=== PATIENT | female | born 1935 | race Caucasian/White ===

== ENCOUNTER 2017-02-10 14:24 | Emergency (ER) | payer OTHER ==
[2017-02-10] MEDS ORDERED: MORPHINE SULFATE INJ 4 MG IM ONE (16:12)
[2017-02-10] MEDS ORDERED: MORPHINE SULFATE INJ 4 MG ONE (16:15)
--- NOTE | 2017-02-10 16:15 | DR.GENAD ---
HPI - Complaint/Symptoms Chief Complaint Doctors Comments: Patient states that two days ago fell forward when getting of the stool,chest hit the bath tub. Thought the pain would be getting betting but is worse across the anterior chest. Pain is 6/8, moderate, aggravated with chest wall motion. PMH - PMH Past Medical History: Arthritis, Diabetes, Renal Disease Past Surgical History: Yes Surgical History: Hysterectomy - Family History Family Medical History: Diabetes Mellitus, Coronary Artery Disease, Hypertension - Social History Do you use any recreational Drugs:: No ROS - Review of Systems Eyes: No Symptoms Reported ENTM: No Symptoms Reported Respiratoy: No Symptoms Reported Cardiovascular: No Symptoms Reported Gastrointestinal/Abdominal: No Symptoms Reported Genitourinary: No Symptoms Reported Neurological: No Symptoms Reported Musculoskeletal: Chest wall Integumentary: No Symptoms Reported Hematologic/Lymphatic: No Symptoms Reported Endocrine: No Symptoms Reported Psychiatric: No Symptoms Reported All Other Systems: Reviewed and Negative PE - Vital Signs Vitals: Blood Pressure 191/68 - General Limitations: No Limitations General Appearance: Alert, In No Apparent Distress - Head Head Exam: Normal Inspection, Atraumatic - Eyes Eye exam: Normal Appearance, PERRL, EOMI - ENT ENT Exam: Normal Exam External Ear Exam: Normal External Inspection TM/Canal Exam: Bilateral Normal Nose Exam: Normal Nose Exam Mouth Exam: Normal Inspection Throat Exam: Normal Inspection - Neck Neck Exam: Normal Inspection - Chest Chest Inspection: Normal Inspection - Respiratory Respiratory Exam: Normal Lung Sounds Bilat Respiratory Exam: Bilateral Clear to Auscultation - Cardiovascular Cardiovascular Exam: Regular Rate, Normal Rhythm - Abdominal Exam Abdominal Exam: Normal Inspection, Normal Bowel Sounds Abdominal Tenderness: negative: RUQ, RLQ, LUQ, LLQ, Epigastrium, Suprapubic, Diffuse, Mild, Moderate, Severe, Other - Extremities Extremities Exam: Normal Inspection - Back Back Exam: Normal Inspection - Neurologic Neurological Exam: Alert, Oriented X3, CN II-XII Intact - Psychiatric Psychiatric Exam: Normal Affect, Normal Mood - Skin Skin Exam: Warm, Dry Course - Reevaluation 1st: Improved ROR - XRAY XRAY Interpreted by: Radiologist (Stable mild cardiomegaly with minimal discoid atelectasis or scarring along the lung bases which is less prominent. Severe compression fracture along the thoracolumbar spine which is unchanged.) - Diagnosis Discharge Problem: Compression fracture of body of thoracic vertebra Compression fracture of lumbar vertebra, non-traumatic Qualifiers: Encounter type: sequela Qualified Code(s): M48.56XS - Collapsed vertebra, not elsewhere classified, lumbar region, sequela of fracture - Discharge Plan Condition: Stable - Follow ups/Referrals Follow ups/Referrals: AARON GORDON [Primary Care Provider] - 3 days - Instructions
--- NOTE | 2017-02-10 16:59 | RAD ---
HISTORY: Chest pain Study: PA and lateral Comparison: 09/26/2013 Findings: The heart is borderline enlarged. The pulmonary vessels are normal. There are mild linear densities along the lung bases which are less prominent. No consolidation or effusion is seen. There is a amy re compression fracture along the thoracolumbar spine with associated kyphotic deformity in the area which is unchanged. IMPRESSION: Stable mild cardiomegaly with minimal discoid atelectasis or scarring along the lung bases which is less prominent. Severe compression fracture along the thoracolumbar spine which is unchanged. Reported By:
[2017-02-10 18:08] VITALS: BP 133/93; BMI 31.6
== END 2017-02-10 17:59 | disposition home or self-care (01) ==
LOC: ER 14:24
DX: S22.010A Wedge compression fracture of first thoracic vertebra, initial encounter for closed fracture (principal); M48.56XS Collapsed vertebra, not elsewhere classified, lumbar region, sequela of fracture; W01.198A Fall on same level from slipping, tripping and stumbling with subsequent striking against other object, initial encounter
CPT/HCPCS: 71020; 96372; 99282; J2270

== ENCOUNTER 2017-03-19 09:47 | Inpatient (IN) | payer OTHER ==
[2017-03-19 09:58] VITALS: BMI 29.2
[2017-03-19 10:15] LABS: BASOPHILS # (AUTO) 0.1 X10^3/uL (0.0-0.1); BASOPHILS % (AUTO) 0.3 % (0.2-1.0); EOSINOPHILS # (AUTO) 0.1 x10^3/uL (0.0-0.2); EOSINOPHILS % (AUTO) 0.4 % (0.9-2.9); HEMATOCRIT 34.7 % (36.0-47.0); HEMOGLOBIN 11.5 g/dL (12.0-16.0); LYMPHOCYTES % (AUTO) 11.9 % (21.0-51.0); MEAN CORPUSCULAR HEMOGLOBIN 30.4 pg (27.0-34.0); MEAN CORPUSCULAR HGB CONC 33.1 g/dL (33.0-35.0); MEAN CORPUSCULAR VOLUME 91.6 fL (80.0-100.0); MEAN PLATELET VOLUME 7.7 fL (7.4-11.0); MONOCYTES # (AUTO) 0.9 x10^3/uL (0.3-0.8); MONOCYTES % (AUTO) 5.4 % (0.0-13.0); NEUTROPHILS # (AUTO) 13.6 x10^3/uL (2.2-4.8); PLATELET COUNT 205 X10^3/uL (150.0-450.0); RED BLOOD COUNT 3.79 X10^6/uL (3.5-5.4); RED CELL DISTRIBUTION WIDTH 15.3 % (11.6-16.5); WHITE BLOOD COUNT 16.6 X10^3/uL (3.6-10.0)
[2017-03-19] MEDS ORDERED: MORPHINE SULFATE INJ 4 MG IVP ONE (10:20)
[2017-03-19] MEDS ORDERED: MORPHINE SULFATE INJ 4 MG ONE (10:21)
[2017-03-19 10:33] LABS: BLOOD UREA NITROGEN 30 mg/dL (7-18); CALCIUM 8.4 mg/dL (8.5-10.1); CARBON DIOXIDE 22.7 mmol/L (21-32); CHLORIDE 96 mmol/L (98-107); COR NA(FOR HYPERGLY) 129 mmol/L (136-145); CREATININE 1.46 mg/dL (0.55-1.02); GLUCOSE 129 mg/dL (65-99); SODIUM 128 mmol/L (136-145); TROPONIN I < 0.02 ng/mL (0-1.5); eGFR BLACK RACES 44 (>60); eGFR NON BLACK RACES 37 (>60)
[2017-03-19 10:37] LABS: ALANINE AMINOTRANSFERASE 31 Units/L (12-78); ALBUMIN 3.2 g/dL (3.4-5.0); ALKALINE PHOSPHATASE 49 Units/L (46-116); ASPARTATE AMINO TRANSFERASE 26 Units/L (15-37); CKMB % 1.9 % (<4); CREATINE KINASE 58 Units/L (26-192); CREATINE KINASE MB 1.1 ng/mL (0-4.0); TOTAL PROTEIN 6.4 g/dL (6.4-8.2)
--- NOTE | 2017-03-19 10:45 | RAD ---
HISTORY: 81-year-old female status post fall. Study: Frontal view of the chest. Comparison: Chest radiographs February 10, 2017 Findings: Chronic elevation the right hemidiaphragm. The trachea is midline. The cardiac silhouette is stably enlarged. The lungs are clear without foc al consolidation, effusion or pneumothorax. Soft tissues are unremarkable. Osseus structures are un remarkable. IMPRESSION: 1. No acute cardiopulmonary disease. Reported By:
--- NOTE | 2017-03-19 11:28 | DR.EXTPAIN ---
HPI - Time seen Time seen: 11:25 - HPI Comment HPI Comment: SHE IS WEAK AND SHE IS NOT ABLE TO GET UP AND GO. PAIN BOTH KNESS. - Complaint/Symptoms Chief Complaint Doctor Comments: FELL 02:00AM TODAY AND HAVE PAIN LOWER BACK AND TAIL BONE. NO LOC. 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 Self Treatment fo Chief Complaint: PT TOLD EMS SHE FELL AT 0200 AND HER WALKER BROKE THIS AM SHE HAD NO STRENGH AND SHE FELL BESIDE THE BED ..BR - Nurses notes reviewed Nurses Notes Review: Yes - Source History Provided: Patient, EMS - Mode of arrival Mode of Arrival: EMS - Timing Onset of Chief Complaint: 03/18/17 - Context History of: Arthritis - Associated signs and symptoms Associated Signs and Symptoms: Pain, Swelling, Bruising PMH - PMH Past Medical History: Yes Past Medical History: Arthritis, Diabetes, Hypothyroidism, Renal Disease Past Surgical History: Yes Surgical History: Hysterectomy - Family History History of Family Medical Conditions: Yes Family Medical History: Diabetes Mellitus, Coronary Artery Disease, Hypertension - Social History Does patient currently use any type of tobacco product: No Have you used tobacco products in the last 12 months: No Type of Tobacco Use: None Does any household member use tobacco: No Alcohol Use: None, Rarely Do you use any recreational Drugs:: No Lives With: Alone Lives Where: Home - infectious screening In the last 2 months have you had wt loss of >10#?: NO Have you had fever, night sweats or hemotysis?: No Have you traveled outside the country in the last 6 months?: No Isolation: Standard ROS - Review of Systems Constitutional: Weakness. negative: Chills, Fever Eyes: negative: Eye Pain, Discharge ENTM: negative: Ear Pain, Nose Discharge, Nose Congestion, Throat Pain Respiratoy: Short of Breath. negative: Productive Cough, Non-Productive Cough, Wheezing, Hemoptysis Cardiovascular: negative: Syncope Gastrointestinal/Abdominal: negative: Abdominal Pain, Diarrhea, Nausea, Vomiting Genitourinary: negative: Dysuria, Hematuria Neurological: Weakness. negative: Headache Musculoskeletal: Muscle Pain Integumentary: Change in Color, Bruises Hematologic/Lymphatic: Easy Bruising Endocrine: No Symptoms Reported All Other Systems: Reviewed and Negative PE - Vital Signs Vitals: Temperature 98.1 F Pulse Rate 62 Respiratory Rate 18 Blood Pressure 104/76 O2 Sat by Pulse Oximetry 100 - General Limitations: No Limitations General Appearance: Alert - Head Head Exam: Normal Inspection - Eyes Eye exam: Normal Appearance - ENT ENT Exam: Normal External Ear Exam - Neck Neck Exam: Normal Inspection - Chest Chest Inspection: Normal Inspection - Respiratory Respiratory Exam: Normal Lung Sounds Bilat Respiratory Exam: Bilateral Clear to Auscultation - Cardiovascular Cardiovascular Exam: Regular Rate, Normal Rhythm, Irregular Rhythm - Abdominal Exam Abdominal Exam: Normal Bowel Sounds, Soft. negative: Tenderness - Extremities Extremities Exam: Tenderness (LT FOOT, KNEES TENDER), Joint Swelling (KNEES) - Lower Extremities Neurovascular/Tendon Exam: Normal Capillary Refill. 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 - Consultation Consultation Comments: DISCUSS PATIENT WITH DR. JERRY. HE WILL ADMIT PATIENT. DISCUU PATIENT WITH ORTHOPEDIC DR. ENGINEERING MANAGER [employer] FOR CONSULT, DR. MEEKS. - Education/Counseling Education/Counseling: Patient, Family, Education Educated On: Treatment, Diagnosis ROR - Labs Reviewed Laboratory Results Reviewed?: Yes Result Diagrams: 03/19/17 10:07 03/19/17 10:07 Laboratory: WBC 16.6 X10^3/uL (3.6-10.0) H 03/19/17 10:07 RBC 3.79 X10^6/uL (3.5-5.4) 03/19/17 10:07 Hgb 11.5 g/dL (12.0-16.0) L 03/19/17 10:07 Hct 34.7 % (36.0-47.0) L 03/19/17 10:07 MCV 91.6 fL (80.0-100.0) 03/19/17 10:07 MCH 30.4 pg (27.0-34.0) 03/19/17 10:07 MCHC 33.1 g/dL (33.0-35.0) 03/19/17 10:07 RDW 15.3 % (11.6-16.5) 03/19/17 10:07 Plt Count 205 X10^3/uL (150.0-450.0) 03/19/17 10:07 MPV 7.7 fL (7.4-11.0) 03/19/17 10:07 Neut % 82.0 % (42.0-75.0) H 03/19/17 10:07 Lymph % 11.9 % (21.0-51.0) L 03/19/17 10:07 [place] % 5.4 % (0.0-13.0) 03/19/17 10:07 Eos % 0.4 % (0.9-2.9) L 03/19/17 10:07 Baso % 0.3 % (0.2-1.0) 03/19/17 10:07 Neut # 13.6 x10^3/uL (2.2-4.8) H 03/19/17 10:07 Lymph # 2.0 X10^3/uL (1.3-2.9) 03/19/17 10:07 [place] # 0.9 x10^3/uL (0.3-0.8) H 03/19/17 10:07 Eos # 0.1 x10^3/uL (0.0-0.2) 03/19/17 10:07 Baso # 0.1 X10^3/uL (0.0-0.1) 03/19/17 10:07 Absolute Nucleated RBC 0.0 /100WBC 03/19/17 10:07 Sodium 128 mmol/L (136-145) L 03/19/17 10:07 Corrected Sodium 129 mmol/L (136-145) L 03/19/17 10:07 Potassium 5.0 mmol/L (3.5-5.1) 03/19/17 10:07 Chloride 96 mmol/L (98-107) L 03/19/17 10:07 Carbon Dioxide 22.7 mmol/L (21-32) 03/19/17 10:07 BUN 30 mg/dL (7-18) H 03/19/17 10:07 Creatinine 1.46 mg/dL (0.55-1.02) H 03/19/17 10:07 Est GFR (MDRD) Af Amer 44 (>60) L 03/19/17 10:07 Est GFR (MDRD) Non-Af 37 (>60) L 03/19/17 10:07 Glucose 129 mg/dL (65-99) H 03/19/17 10:07 Calcium 8.4 mg/dL (8.5-10.1) L 03/19/17 10:07 Corrected Calcium 9.0 mg/dL (8.5-10.1) 03/19/17 10:07 Total Bilirubin 0.40 mg/dL (0.2-1.0) 03/19/17 10:07 AST 26 Units/L (15-37) 03/19/17 10:07 ALT 31 Units/L (12-78) 03/19/17 10:07 Alkaline Phosphatase 49 Units/L (46-116) 03/19/17 10:07 Creatine Kinase 58 Units/L (26-192) 03/19/17 10:07 CK-MB (CK-2) 1.1 ng/mL (0-4.0) 03/19/17 10:07 CK/CKMB % Calc 1.9 % (<4) 03/19/17 10:07 Troponin I < 0.02 ng/mL (0-1.5) 03/19/17 10:07 Total Protein 6.4 g/dL (6.4-8.2) 03/19/17 10:07 Albumin 3.2 g/dL (3.4-5.0) L 03/19/17 10:07 Globulin 3.2 g/dL (2.5-4.5) 03/19/17 10:07 Albumin/Globulin Ratio 1.0 Ratio (1.1-2.1) L 03/19/17 10:07 - XRAY XRAY Interpreted by: Radiologist XRAY Findings: REPORT DISCUSS WITH PATIENT. - EKG Rhythm: NSR (EKG NOTED) - Diagnosis Discharge Problem: Hyponatremia, Dehydration Compression fx, lumbar spine Qualifiers: Encounter type: initial encounter Fracture type: closed Qualified Code(s): S32.000A - Wedge compression fracture of unspecified lumbar vertebra, initial encounter for closed fracture Coccygeal fracture Qualifiers: Encounter type: initial encounter Fracture type: closed Qualified Code(s): S32.2XXA - Fracture of coccyx, initial encounter for closed fracture - Discharge Plan Disposition: ADMITTED INPATIENT Condition: Stable - Follow ups/Referrals - Instructions
--- NOTE | 2017-03-19 12:21 | CT ---
CT lumbar spine without contrast Indication: Fall with low back pain. Comparison: None Technique: CT images of the lumbar spine were obtained without contrast. Automatic exposure control was utilized. Findings: There is an acute compression fracture of L2 demonstrating approximately 25% height loss c entrally. No fracture extension into the posterior elements identified. Thin lucency extending throu gh the right L2 transverse process seen on axial image 24 is suggestive for a vascular channel. No f acet subluxation identified. There is a chronic T12 compression fracture demonstrating greater than 80% height loss. There is mod erate multilevel facet arthropathy. There is advanced discogenic DJD at L4-5, with mild rightward tarango bluxation of the L4 vertebral body. The AP alignment is within normal limits. There is generalized o steopenia. Impression: 1. Acute L2 compression fracture with mild height loss 2. Multilevel degenerative changes, worst at L4-5. Generalized osteopenia. 4. Chronic T12 compression fracture. Reported By:
--- NOTE | 2017-03-19 12:28 | CT ---
CT pelvis without contrast Indication: Sacral pain after fall Technique: CT images of the pelvis were obtained without contrast. Automatic exposure control was ut ilized. Findings: Lumbar spine findings are reported separately. There are mild degenerative changes of the SI joints, hips, and pubic symphysis. Generalized osteope jerod is noted. There is minimal anterior angulation with questionable lucency extending through the through the upper coccyx (for example sagittal image 56). No acute sacral or pelvic frac ture identified. There is urinary bladder distention with multiple diverticula. No free fluid identified within the p madelin. Impression: 1. Questionable minimally displaced coccygeal fracture. Correlation recommended. This could be furth er evaluated with MRI, if indicated. No acute pelvic or sacral fracture identified. 2. Generalized osteopenia and degenerative changes as above. 3. Urinary bladder distention with diverticula. Correlation for outlet obstruction recommended. Reported By:
[2017-03-19] MEDS ORDERED: ZOFRAN INJ 4 MG VIAL IVP PRN (13:14)
[2017-03-19] MEDS ORDERED: NEOSPORIN OINT TOP ONE (13:19)
[2017-03-19] MEDS ORDERED: NEOSPORIN OINT ONE (13:20)
[2017-03-19 13:25] LABS: BILIRUBIN,URINE NEGATIVE (NEGATIVE); BLOOD/HEMOGLOBIN,URINE NEGATIVE (NEGATIVE); GLUCOSE, URINE NEGATIVE (NEGATIVE); KETONES,URINE NEGATIVE (NEGATIVE); LEUKOCYTE ESTERASE ,URINE NEGATIVE (NEGATIVE); NITRITES,URINE NEGATIVE (NEGATIVE); PH,URINE 6.5 (5.0 - 8.0); PROTEIN,URINE 3+ (NEGATIVE); UROBILINOGEN,URINE NORMAL (NORMAL)
[2017-03-19 13:43] LABS: APPEARANCE,URINE CLEAR (CLEAR); COLOR,URINE YELLOW (YELLOW); RBC,URINE 0-2 /HPF (NEGATIVE)
[2017-03-19 13:44] LABS: BACTERIA,URINE TRACE /HPF (NEGATIVE); SQUAMOUS EPITHELIAL CELL,UR NEGATIVE /HPF (NEGATIVE)
[2017-03-19] MEDS ORDERED: FLONASE NASAL SPRAY ENOSTRIL PRN (13:53)
[2017-03-19] MEDS ORDERED: PATIENT'S HOME MEDICATION PO SCH (14:00)
[2017-03-19] MEDS ORDERED: CYANOCOBALAMIN SC SCH (14:00)
[2017-03-19] MEDS ORDERED: GABAPENTIN 100 MG PO SCH (14:00)
[2017-03-19] MEDS: NS 1000 ML 1,000 ML IV SCH (14:37)
--- NOTE | 2017-03-19 14:47 | RAD ---
FOOT RADIOGRAPHS CLINICAL HISTORY: 81-year-old female status post fall. COMPARISON: None. FINDINGS: 3 views of the left foot were obtained. These demonstrate no acute fracture or malalignmen t. The Lisfranc interval is maintained. The joint spaces are preserved. Diffuse osteopenia. Mild soft tissue edema. IMPRESSION: No acute fracture or osseous abnormality is demonstrated on left foot radiographs. Reported By:
--- NOTE | 2017-03-19 14:59 | RAD ---
Right knee, three views Indication: Knee pain after fall Findings: There is moderate to advanced tricompartmental DJD, worst in the medial femorotibial cody rtment. Acute cortical disruption or bony malalignment identified. There is a small joint effusion. Impression: No acute right knee fracture or subluxation identified. Tricompartmental DJD. Small join t effusion. Reported By:
--- NOTE | 2017-03-19 14:59 | RAD ---
Left knee, three views Indication: Fall with knee pain. Findings: There is moderate to advanced tricompartmental DJD, worst in the medial femorotibial cody rtment. There is a small joint effusion. No acute cortical disruption or malalignment identified. Impression: No acute fracture or subluxation of the left knee identified. Tricompartmental DJD with small joint effusion. Reported By:
[2017-03-19] MEDS ORDERED: NORCO 5/325 MG TAB PO PRN ×2 (15:24→16:50)
[2017-03-19] MEDS: MORPHINE SULFATE INJ 4 MG IVP PRN ×2 (15:26→22:45)
[2017-03-19 16:49] LABS: CKMB % 1.7 % (<4); CREATINE KINASE MB 1.3 ng/mL (0-4.0); TROPONIN I < 0.02 ng/mL (0-1.5)
[2017-03-19 16:55] LABS: CREATINE KINASE 77 Units/L (26-192)
[2017-03-19] MEDS ORDERED: OMEGA ACID ETHYL ESTERS PO SCH (21:00)
[2017-03-19] MEDS: CRESTOR TAB 10 MG PO SCH (21:11)
[2017-03-19] MEDS: COLACE CAP 100 MG PO SCH (21:11)
[2017-03-19] MEDS: NEURONTIN CAP 100 MG PO SCH (21:11)
[2017-03-19] MEDS: MILK OF MAGNESIA PO SCH (21:11)
[2017-03-19] MEDS: ATIVAN TAB 0.5 MG PO SCH (21:11)
[2017-03-19] MEDS: LOVAZA PO SCH (21:11)
[2017-03-19] MEDS: DESYREL PO SCH (21:11)
[2017-03-19] MEDS: PATIENT'S HOME MEDICATION (Sevelamer Carbonate [Renvela Tablet] 800 MG) PO SCH (21:15)
[2017-03-19 23:12] LABS: CKMB % 1.5 % (<4); CREATINE KINASE 81 Units/L (26-192); CREATINE KINASE MB 1.2 ng/mL (0-4.0); TROPONIN I < 0.02 ng/mL (0-1.5)
[2017-03-20] MEDS: NEURONTIN CAP 100 MG PO SCH ×3 (05:34→21:29)
[2017-03-20 05:42] LABS: BASOPHILS # (AUTO) 0.1 X10^3/uL (0.0-0.1); BASOPHILS % (AUTO) 0.5 % (0.2-1.0); EOSINOPHILS # (AUTO) 0.3 x10^3/uL (0.0-0.2); EOSINOPHILS % (AUTO) 2.4 % (0.9-2.9); HEMATOCRIT 32.6 % (36.0-47.0); HEMOGLOBIN 10.9 g/dL (12.0-16.0); LYMPHOCYTES # (AUTO) 1.4 X10^3/uL (1.3-2.9); LYMPHOCYTES % (AUTO) 12.3 % (21.0-51.0); MEAN CORPUSCULAR HEMOGLOBIN 30.6 pg (27.0-34.0); MEAN CORPUSCULAR HGB CONC 33.4 g/dL (33.0-35.0); MEAN CORPUSCULAR VOLUME 91.6 fL (80.0-100.0); MEAN PLATELET VOLUME 7.8 fL (7.4-11.0); MONOCYTES # (AUTO) 0.7 x10^3/uL (0.3-0.8); MONOCYTES % (AUTO) 5.7 % (0.0-13.0); NEUTROPHILS # (AUTO) 9.3 x10^3/uL (2.2-4.8); NEUTROPHILS % (AUTO) 79.1 % (42.0-75.0); PLATELET COUNT 183 X10^3/uL (150.0-450.0); RED BLOOD COUNT 3.56 X10^6/uL (3.5-5.4); WHITE BLOOD COUNT 11.7 X10^3/uL (3.6-10.0)
[2017-03-20 05:45] LABS: ALBUMIN 2.7 g/dL (3.4-5.0); CALCIUM 8.3 mg/dL (8.5-10.1); CARBON DIOXIDE 20.9 mmol/L (21-32); COR CA(FOR HYPOALB) 9.3 mg/dL (8.5-10.1); CREATININE 1.18 mg/dL (0.55-1.02); TOTAL PROTEIN 5.9 g/dL (6.4-8.2)
[2017-03-20] MEDS: MORPHINE SULFATE INJ 4 MG IVP PRN (05:49)
[2017-03-20] MEDS: NS 1000 ML 1,000 ML IV SCH ×2 (05:54→15:38)
[2017-03-20] MEDS: CONSULT PHARMACY - INSULIN ADJUSTMENT NEEDED XX SCH (07:25)
[2017-03-20] MEDS ORDERED: PATIENT'S HOME MEDICATION (Cetirizine Hcl [Zyrtec Allergy] 10 MG) PO SCH (09:00)
[2017-03-20] MEDS ORDERED: PATIENT'S HOME MEDICATION (Folic Acid [Folic Acid] 1 MG) PO SCH (09:00)
[2017-03-20] MEDS ORDERED: PATIENT'S HOME MEDICATION (Rosuvastatin Calcium [Crestor] 20 MG) PO SCH (09:00)
[2017-03-20] MEDS ORDERED: PATIENT'S HOME MEDICATION (Pregabalin [Lyrica] 50 MG) PO SCH (09:00)
[2017-03-20] MEDS ORDERED: SYNTHROID 125 mcg TAB PO SCH (09:00)
[2017-03-20] MEDS ORDERED: FENOFIBRATE 48 MG PO SCH (09:00)
[2017-03-20] MEDS ORDERED: ASPIRIN 81 MG CHEWTAB PO SCH (09:00)
[2017-03-20] MEDS ORDERED: BACTROBAN OINT TOP PRN (09:18)
[2017-03-20] MEDS: MILK OF MAGNESIA PO SCH ×2 (09:21→21:32)
[2017-03-20] MEDS: LOVAZA PO SCH ×2 (09:21→21:27)
[2017-03-20] MEDS: ATIVAN TAB 0.5 MG PO SCH ×2 (09:21→21:28)
[2017-03-20] MEDS: FOLIC ACID TAB 1 MG PO SCH (09:21)
[2017-03-20] MEDS: LYRICA CAP 50 MG PO SCH (09:21)
[2017-03-20] MEDS: TRICOR TAB 48 MG PO SCH (09:22)
[2017-03-20] MEDS: VITAMIN D3 PO SCH (09:22)
[2017-03-20] MEDS: NexIUM PO SCH (09:22)
[2017-03-20] MEDS: PATIENT'S HOME MEDICATION (Sevelamer Carbonate [Renvela Tablet] 800 MG) PO SCH ×2 (09:22→21:32)
[2017-03-20] MEDS: ZYLOPRIM PO SCH (09:22)
[2017-03-20] MEDS: ZOFRAN TAB 4 MG PO SCH (09:22)
[2017-03-20] MEDS: ZyrTEC TAB 10 MG PO SCH (09:23)
[2017-03-20] MEDS: PERCOCET TAB 5/325 MG PO PRN ×2 (10:45→16:32)
--- NOTE | 2017-03-20 18:33 | DR.H&P ---
Addendum entered and electronically signed by MAGDA IBARRA 03/21/17 19:41: DATE OF ADMISSION 03/19/2017 Original Note: H&P - History & Physical for Day of: H&P Date: 03/20/17 - Chief Complaint Chief Complaint: 81 WF ADMITTED FROM ER AFTER FALL WTH ACUTE LOWER BACK PAIN. PT HAD CT LUMBAR COMPRESSION FRACTURE, PLAN TO ADMIT FOR PAIN CONTROL AND ORTHO CONSULT - Allergies Allergies/Adverse Reactions: Allergies Allergy/AdvReac Type Severity Reaction Status Date / Time No Known Drug Allergies Allergy Verified 03/20/17 04:45 - History of Present Illness History of Present Illness: SEE ABOVE - Past Medical History Past Medical History: Arthritis, Diabetes, Hypothyroidism, Renal Disease - Past Surgical History Surgical History: Other - Family History Family Medical History: Diabetes Mellitus, Cancer, [place], Hypertension - Social History Does patient currently use any type of tobacco product: No Have you used tobacco products in the last 12 months: No Type of Tobacco Use: None Does any household member use tobacco: No Alcohol Use: None Drug Use: Prescription Drugs - Medications Home Medications: Esomeprazole Magnesium [NEXIUM 40 MG *] 1 tab PO DAILY 03/19/17 [History Confirmed 03/19/17] Hydrocodone/Acetaminophen [Hydrocodon-Acetaminophen 5-325] 1 tab PO Q6H PRN [History Confirmed 03/19/17] Insulin Glargine,Hum.rec.anlog [Lantus Solostar] 45 units SQ HS 03/19/17 [ History Confirmed 03/19/17] Levothyroxine Sodium [SYNTHROID 125 mcg *] 1 tab PO DAILY 03/19/17 [History Confirmed 03/19/17] Lorazepam [ATIVAN 0.5 MG TAB *] 1 tab PO BID 03/19/17 [History Confirmed ] Misc Home Med [Patient's Home Medication (Non-PO)] 10 units SQ AC 03/19/17 [ History Confirmed 03/19/17] Misc Home Med [Patient's Home Medication] 1 tab PO WEEKLY 03/19/17 [History Confirmed 03/19/17] Ondansetron HCl [ZOFRAN TAB 4 MG *] 4 mg PO DAILY 03/19/17 [History Confirmed ] - Review of Systems Constitutional: Weakness Eyes: No Symptoms Reported ENT: No Symptoms Reported Respiratory: No Symptoms Reported Cardiovascular: No Symptoms Reported Gastrointestinal: No Symptoms Reported Genitourinary: No Symptoms Reported Musculoskeletal: Back Pain Neurological: No Symptoms Reported - Physical Exam Vital Signs: Temperature 98.5 F Pulse Rate [Right Brachial] 67 Respiratory Rate 20 Blood Pressure [Right Arm] 106/57 O2 Sat by Pulse Oximetry 94 Oriented: Normal Eyes: Normal Ear: Normal Nose: Normal Throat: Normal Respiratory: Clear Throughout Cardiovascular: Normal : Normal Auscultation: Bowel Sounds: Normal Palpation: Normal Tenderness: Normal Skin: Normal Musculoskeletal: Back:Thoracic, Back:Lumbar Mood Description: Calm Speech Pattern: Clear, Appropriate - Assessment/Plan (1) Compression fracture of lumbar vertebra, non-traumatic Qualifiers: Encounter type: E Fracture healing: F Status: Acute Plan: ADMIT, PAIN CONTROL, PT. ORTHO CONSULT (2) Fall Qualifiers: Encounter type: E Status: Acute
[2017-03-20] MEDS: CRESTOR TAB 10 MG PO SCH (21:28)
[2017-03-20] MEDS: DESYREL PO SCH (21:29)
[2017-03-20] MEDS: COLACE CAP 100 MG PO SCH (21:29)
[2017-03-20] MEDS: SNACK - Diabetic Appropriate PO SCH (21:29)
[2017-03-21 05:47] LABS: ALBUMIN 2.2 g/dL (3.4-5.0); CALCIUM 7.8 mg/dL (8.5-10.1); COR CA(FOR HYPOALB) 9.2 mg/dL (8.5-10.1); CREATININE 1.42 mg/dL (0.55-1.02); TOTAL PROTEIN 5.4 g/dL (6.4-8.2)
[2017-03-21] MEDS: NS 1000 ML 1,000 ML IV SCH ×3 (05:54→23:06)
[2017-03-21] MEDS: NEURONTIN CAP 100 MG PO SCH ×3 (05:54→21:44)
[2017-03-21 06:05] LABS: BASOPHILS # (AUTO) 0.1 X10^3/uL (0.0-0.1); BASOPHILS % (AUTO) 0.5 % (0.2-1.0); EOSINOPHILS # (AUTO) 0.2 x10^3/uL (0.0-0.2); EOSINOPHILS % (AUTO) 2.4 % (0.9-2.9); HEMATOCRIT 29.3 % (36.0-47.0); HEMOGLOBIN 9.8 g/dL (12.0-16.0); LYMPHOCYTES # (AUTO) 1.6 X10^3/uL (1.3-2.9); LYMPHOCYTES % (AUTO) 16.3 % (21.0-51.0); MEAN CORPUSCULAR HEMOGLOBIN 30.9 pg (27.0-34.0); MEAN CORPUSCULAR HGB CONC 33.6 g/dL (33.0-35.0); MONOCYTES # (AUTO) 0.7 x10^3/uL (0.3-0.8); MONOCYTES % (AUTO) 7.5 % (0.0-13.0); NEUTROPHILS # (AUTO) 7.3 x10^3/uL (2.2-4.8); NEUTROPHILS % (AUTO) 73.3 % (42.0-75.0); PLATELET COUNT 158 X10^3/uL (150.0-450.0); RED BLOOD COUNT 3.18 X10^6/uL (3.5-5.4); RED CELL DISTRIBUTION WIDTH 14.9 % (11.6-16.5); WHITE BLOOD COUNT 9.9 X10^3/uL (3.6-10.0)
[2017-03-21] MEDS: SYNTHROID 100 mcg TAB PO SCH (06:50)
[2017-03-21] MEDS: CONSULT PHARMACY - INSULIN ADJUSTMENT NEEDED XX SCH (07:35)
[2017-03-21] MEDS: FOLIC ACID TAB 1 MG PO SCH (08:38)
[2017-03-21] MEDS: ATIVAN TAB 0.5 MG PO SCH ×2 (08:38→21:44)
[2017-03-21] MEDS: PATIENT'S HOME MEDICATION (Sevelamer Carbonate [Renvela Tablet] 800 MG) PO SCH ×2 (08:39→21:45)
[2017-03-21] MEDS: LYRICA CAP 50 MG PO SCH (08:39)
[2017-03-21] MEDS: NexIUM PO SCH (08:39)
[2017-03-21] MEDS: TRICOR TAB 48 MG PO SCH (08:39)
[2017-03-21] MEDS: MILK OF MAGNESIA PO SCH ×2 (08:39→21:47)
[2017-03-21] MEDS: LOVAZA PO SCH ×2 (08:39→21:43)
[2017-03-21] MEDS: VITAMIN D3 PO SCH (08:39)
[2017-03-21] MEDS: ZOFRAN TAB 4 MG PO SCH (08:40)
[2017-03-21] MEDS: ZYLOPRIM PO SCH (08:40)
[2017-03-21] MEDS: ZyrTEC TAB 10 MG PO SCH (08:40)
[2017-03-21] MEDS: MORPHINE SULFATE INJ 4 MG IVP PRN ×2 (10:13→21:53)
[2017-03-21] MEDS ORDERED: [UNRECOGNIZED DRUG - OTHER] SQ SCH (11:30)
[2017-03-21] MEDS: PERCOCET TAB 5/325 MG PO PRN (16:25)
--- NOTE | 2017-03-21 19:42 | PCM.PROG ---
Progress Note - Progress Note for Day of Date: 03/20/17 - Subjective Subjective: CO MID AND LOWER BACK PAIN, PT ADMITTED AFTER FALL WITH NEW LUMBAR SPINE COMPRESSION FRACTURES. DR BLUE CONSULTING, KYPHOPLASTY SCHEDULED FOR MONDAY. CONTINUE PT, PAIN CONTROL - Past Medical Family Social History Past Med/Fam/Surg Hx: No changes since H&P Allergies: Allergies No Known Drug Allergies Allergy (Verified 03/20/17 04:45) - Review of Systems ROS: No change since H&P - Vital Signs and I&O's Vital Signs: Temperature 98.0 F Pulse Rate [Right Brachial] 79 Respiratory Rate 18 Blood Pressure [Right Arm] 117/57 O2 Sat by Pulse Oximetry 92 Intake and Output: Intake & Output 03/19/17 03/20/17 03/21/17 03/22/17 11:59 11:59 11:59 11:59 Intake Total 833 1082 1040 Output Total 1000 1700 1000 Balance -167 -618 40 - Physical Exam Oriented: Normal Eyes: Normal Ear: Normal Nose: Normal Throat: Normal Respiratory: Normal Cardiovascular: Normal : Normal Auscultation: Bowel Sounds: Normal Tenderness: Normal Skin: Normal Musculoskeletal: Back:Thoracic, Back:Lumbar Mood Description: Calm Speech Pattern: Clear, Appropriate - Laboratory and Diagnostics Result Diagrams: 03/21/17 04:15 03/21/17 04:15 Labs: Laboratory WBC 9.9 X10^3/uL (3.6-10.0) 03/21/17 04:15 RBC 3.18 X10^6/uL (3.5-5.4) L 03/21/17 04:15 Hgb 9.8 g/dL (12.0-16.0) L 03/21/17 04:15 Hct 29.3 % (36.0-47.0) L 03/21/17 04:15 MCV 92.0 fL (80.0-100.0) 03/21/17 04:15 MCH 30.9 pg (27.0-34.0) 03/21/17 04:15 MCHC 33.6 g/dL (33.0-35.0) 03/21/17 04:15 RDW 14.9 % (11.6-16.5) 03/21/17 04:15 Plt Count 158 X10^3/uL (150.0-450.0) 03/21/17 04:15 MPV 8.0 fL (7.4-11.0) 03/21/17 04:15 Neut % 73.3 % (42.0-75.0) 03/21/17 04:15 Lymph % 16.3 % (21.0-51.0) L 03/21/17 04:15 [place] % 7.5 % (0.0-13.0) 03/21/17 04:15 Eos % 2.4 % (0.9-2.9) 03/21/17 04:15 Baso % 0.5 % (0.2-1.0) 03/21/17 04:15 Neut # 7.3 x10^3/uL (2.2-4.8) H 03/21/17 04:15 Lymph # 1.6 X10^3/uL (1.3-2.9) 03/21/17 04:15 [place] # 0.7 x10^3/uL (0.3-0.8) 03/21/17 04:15 Eos # 0.2 x10^3/uL (0.0-0.2) 03/21/17 04:15 Baso # 0.1 X10^3/uL (0.0-0.1) 03/21/17 04:15 Absolute Nucleated RBC 0.0 /100WBC 03/21/17 04:15 Sodium 133 mmol/L (136-145) L 03/21/17 04:15 Corrected Sodium 134 mmol/L (136-145) L 03/21/17 04:15 Potassium 5.3 mmol/L (3.5-5.1) H 03/21/17 04:15 Chloride 103 mmol/L (98-107) 03/21/17 04:15 Carbon Dioxide 23.0 mmol/L (21-32) 03/21/17 04:15 BUN 29 mg/dL (7-18) H 03/21/17 04:15 Creatinine 1.42 mg/dL (0.55-1.02) H 03/21/17 04:15 Est GFR (MDRD) Af Amer 46 (>60) L 03/21/17 04:15 Est GFR (MDRD) Non-Af 38 (>60) L 03/21/17 04:15 Glucose 129 mg/dL (65-99) H 03/21/17 04:15 Calcium 7.8 mg/dL (8.5-10.1) L 03/21/17 04:15 Corrected Calcium 9.2 mg/dL (8.5-10.1) 03/21/17 04:15 Total Bilirubin 0.20 mg/dL (0.2-1.0) 03/21/17 04:15 AST 21 Units/L (15-37) 03/21/17 04:15 ALT 20 Units/L (12-78) 03/21/17 04:15 Alkaline Phosphatase 37 Units/L (46-116) L 03/21/17 04:15 Creatine Kinase 81 Units/L (26-192) 03/19/17 22:40 CK-MB (CK-2) 1.2 ng/mL (0-4.0) 03/19/17 22:40 CK/CKMB % Calc 1.5 % (<4) 03/19/17 22:40 Troponin I < 0.02 ng/mL (0-1.5) 03/19/17 22:40 Total Protein 5.4 g/dL (6.4-8.2) L 03/21/17 04:15 Albumin 2.2 g/dL (3.4-5.0) L 03/21/17 04:15 Globulin 3.2 g/dL (2.5-4.5) 03/21/17 04:15 Albumin/Globulin Ratio 0.7 Ratio (1.1-2.1) L 03/21/17 04:15 Specimen Type Catherized urine 03/19/17 13:18 Urine Color Yellow (YELLOW) 03/19/17 13:18 Urine Appearance Clear (CLEAR) 03/19/17 13:18 Urine pH 6.5 (5.0 - 8.0) 03/19/17 13:18 Ur Specific Revloc 1.010 (1.000-1.030) 03/19/17 13:18 Urine Protein 3+ (NEGATIVE) 03/19/17 13:18 Urine Glucose (UA) Negative (NEGATIVE) 03/19/17 13:18 Urine Ketones Negative (NEGATIVE) 03/19/17 13:18 Urine Occult Blood Negative (NEGATIVE) 03/19/17 13:18 Urine Nitrite Negative (NEGATIVE) 03/19/17 13:18 Urine Bilirubin Negative (NEGATIVE) 03/19/17 13:18 Urine Urobilinogen Normal (NORMAL) 03/19/17 13:18 Ur Leukocyte Esterase Negative (NEGATIVE) 03/19/17 13:18 Urine RBC 0-2 /HPF (NEGATIVE) 03/19/17 13:18 Urine WBC 0-2 /HPF (NEGATIVE) 03/19/17 13:18 Ur Squamous Epith Cells Negative /HPF (NEGATIVE) 03/19/17 13:18 Urine Bacteria Trace /HPF (NEGATIVE) 03/19/17 13:18 Ur Culture Indicated? No/not indicated 03/19/17 13:18 - Plan (1) Compression fracture of lumbar vertebra, non-traumatic Status: Acute Qualifiers: Encounter type: E Fracture healing: F Plan: PAIN CONTROL, PT. ORTHO CONSULT (2) Fall Status: Acute Qualifiers: Encounter type: E
--- NOTE | 2017-03-21 19:44 | PCM.PROG ---
Progress Note - Progress Note for Day of Date: 03/21/17 - Subjective Subjective: CO MID AND LOWER BACK PAIN, MILD DRY COUGH. PT ADMITTED AFTER FALL WITH NEW LUMBAR SPINE COMPRESSION FRACTURES. DR BLUE CONSULTING, KYPHOPLASTY SCHEDULED FOR MONDAY. CONTINUE PT, PAIN CONTROL - Past Medical Family Social History Past Med/Fam/Surg Hx: No changes since H&P Allergies: Allergies No Known Drug Allergies Allergy (Verified 03/20/17 04:45) - Review of Systems ROS: No change since H&P - Vital Signs and I&O's Vital Signs: Temperature 98.0 F Pulse Rate [Right Brachial] 79 Respiratory Rate 18 Blood Pressure [Right Arm] 117/57 O2 Sat by Pulse Oximetry 92 Intake and Output: Intake & Output 03/19/17 03/20/17 03/21/17 03/22/17 11:59 11:59 11:59 11:59 Intake Total 833 1082 1040 Output Total 1000 1700 1000 Balance -167 -618 40 - Physical Exam Oriented: Normal Eyes: Normal Ear: Normal Nose: Normal Throat: Normal Respiratory: Wheezes (MILD UPPER EXP WHEEZE) Cardiovascular: Normal : Normal Auscultation: Bowel Sounds: Normal Tenderness: Normal Skin: Normal Musculoskeletal: Back:Thoracic, Back:Lumbar Mood Description: Calm Speech Pattern: Clear, Appropriate - Laboratory and Diagnostics Result Diagrams: 03/21/17 04:15 03/21/17 04:15 Labs: Laboratory WBC 9.9 X10^3/uL (3.6-10.0) 03/21/17 04:15 RBC 3.18 X10^6/uL (3.5-5.4) L 03/21/17 04:15 Hgb 9.8 g/dL (12.0-16.0) L 03/21/17 04:15 Hct 29.3 % (36.0-47.0) L 03/21/17 04:15 MCV 92.0 fL (80.0-100.0) 03/21/17 04:15 MCH 30.9 pg (27.0-34.0) 03/21/17 04:15 MCHC 33.6 g/dL (33.0-35.0) 03/21/17 04:15 RDW 14.9 % (11.6-16.5) 03/21/17 04:15 Plt Count 158 X10^3/uL (150.0-450.0) 03/21/17 04:15 MPV 8.0 fL (7.4-11.0) 03/21/17 04:15 Neut % 73.3 % (42.0-75.0) 03/21/17 04:15 Lymph % 16.3 % (21.0-51.0) L 03/21/17 04:15 [place] % 7.5 % (0.0-13.0) 03/21/17 04:15 Eos % 2.4 % (0.9-2.9) 03/21/17 04:15 Baso % 0.5 % (0.2-1.0) 03/21/17 04:15 Neut # 7.3 x10^3/uL (2.2-4.8) H 03/21/17 04:15 Lymph # 1.6 X10^3/uL (1.3-2.9) 03/21/17 04:15 [place] # 0.7 x10^3/uL (0.3-0.8) 03/21/17 04:15 Eos # 0.2 x10^3/uL (0.0-0.2) 03/21/17 04:15 Baso # 0.1 X10^3/uL (0.0-0.1) 03/21/17 04:15 Absolute Nucleated RBC 0.0 /100WBC 03/21/17 04:15 Sodium 133 mmol/L (136-145) L 03/21/17 04:15 Corrected Sodium 134 mmol/L (136-145) L 03/21/17 04:15 Potassium 5.3 mmol/L (3.5-5.1) H 03/21/17 04:15 Chloride 103 mmol/L (98-107) 03/21/17 04:15 Carbon Dioxide 23.0 mmol/L (21-32) 03/21/17 04:15 BUN 29 mg/dL (7-18) H 03/21/17 04:15 Creatinine 1.42 mg/dL (0.55-1.02) H 03/21/17 04:15 Est GFR (MDRD) Af Amer 46 (>60) L 03/21/17 04:15 Est GFR (MDRD) Non-Af 38 (>60) L 03/21/17 04:15 Glucose 129 mg/dL (65-99) H 03/21/17 04:15 Calcium 7.8 mg/dL (8.5-10.1) L 03/21/17 04:15 Corrected Calcium 9.2 mg/dL (8.5-10.1) 03/21/17 04:15 Total Bilirubin 0.20 mg/dL (0.2-1.0) 03/21/17 04:15 AST 21 Units/L (15-37) 03/21/17 04:15 ALT 20 Units/L (12-78) 03/21/17 04:15 Alkaline Phosphatase 37 Units/L (46-116) L 03/21/17 04:15 Creatine Kinase 81 Units/L (26-192) 03/19/17 22:40 CK-MB (CK-2) 1.2 ng/mL (0-4.0) 03/19/17 22:40 CK/CKMB % Calc 1.5 % (<4) 03/19/17 22:40 Troponin I < 0.02 ng/mL (0-1.5) 03/19/17 22:40 Total Protein 5.4 g/dL (6.4-8.2) L 03/21/17 04:15 Albumin 2.2 g/dL (3.4-5.0) L 03/21/17 04:15 Globulin 3.2 g/dL (2.5-4.5) 03/21/17 04:15 Albumin/Globulin Ratio 0.7 Ratio (1.1-2.1) L 03/21/17 04:15 Specimen Type Catherized urine 03/19/17 13:18 Urine Color Yellow (YELLOW) 03/19/17 13:18 Urine Appearance Clear (CLEAR) 03/19/17 13:18 Urine pH 6.5 (5.0 - 8.0) 03/19/17 13:18 Ur Specific [place] 1.010 (1.000-1.030) 03/19/17 13:18 Urine Protein 3+ (NEGATIVE) 03/19/17 13:18 Urine Glucose (UA) Negative (NEGATIVE) 03/19/17 13:18 Urine Ketones Negative (NEGATIVE) 03/19/17 13:18 Urine Occult Blood Negative (NEGATIVE) 03/19/17 13:18 Urine Nitrite Negative (NEGATIVE) 03/19/17 13:18 Urine Bilirubin Negative (NEGATIVE) 03/19/17 13:18 Urine Urobilinogen Normal (NORMAL) 03/19/17 13:18 Ur Leukocyte Esterase Negative (NEGATIVE) 03/19/17 13:18 Urine RBC 0-2 /HPF (NEGATIVE) 03/19/17 13:18 Urine WBC 0-2 /HPF (NEGATIVE) 03/19/17 13:18 Ur Squamous Epith Cells Negative /HPF (NEGATIVE) 03/19/17 13:18 Urine Bacteria Trace /HPF (NEGATIVE) 03/19/17 13:18 Ur Culture Indicated? No/not indicated 03/19/17 13:18 - Plan (1) Compression fracture of lumbar vertebra, non-traumatic Status: Acute Qualifiers: Encounter type: E Fracture healing: F Plan: PAIN CONTROL, PT. ORTHO CONSULT (2) Fall Status: Acute Qualifiers: Encounter type: E (3) Cough Status: Acute Plan: CXR ON ADMISSION STABLE, RESP CONSULT FOR JET NEBS PRN
[2017-03-21] MEDS ORDERED: INSULIN GLARGINE HUM REC ANLOG 45 UNIT SQ SCH (21:00)
[2017-03-21] MEDS: COLACE CAP 100 MG PO SCH (21:43)
[2017-03-21] MEDS: SNACK - Diabetic Appropriate PO SCH (21:43)
[2017-03-21] MEDS: CRESTOR TAB 10 MG PO SCH (21:43)
[2017-03-21] MEDS: DESYREL PO SCH (21:44)
[2017-03-22 05:46] LABS: BASOPHILS # (AUTO) 0.1 X10^3/uL (0.0-0.1); BASOPHILS % (AUTO) 0.8 % (0.2-1.0); EOSINOPHILS # (AUTO) 0.2 x10^3/uL (0.0-0.2); EOSINOPHILS % (AUTO) 2.2 % (0.9-2.9); HEMATOCRIT 29.8 % (36.0-47.0); LYMPHOCYTES # (AUTO) 1.9 X10^3/uL (1.3-2.9); LYMPHOCYTES % (AUTO) 19.1 % (21.0-51.0); MEAN CORPUSCULAR HEMOGLOBIN 30.9 pg (27.0-34.0); MEAN CORPUSCULAR HGB CONC 33.6 g/dL (33.0-35.0); MEAN PLATELET VOLUME 8.3 fL (7.4-11.0); MONOCYTES # (AUTO) 0.8 x10^3/uL (0.3-0.8); MONOCYTES % (AUTO) 7.7 % (0.0-13.0); NEUTROPHILS % (AUTO) 70.2 % (42.0-75.0); PLATELET COUNT 165 X10^3/uL (150.0-450.0); RED BLOOD COUNT 3.24 X10^6/uL (3.5-5.4); RED CELL DISTRIBUTION WIDTH 15.2 % (11.6-16.5)
[2017-03-22 05:58] LABS: ALBUMIN 2.2 g/dL (3.4-5.0); CALCIUM 8.1 mg/dL (8.5-10.1); CARBON DIOXIDE 22.1 mmol/L (21-32); COR CA(FOR HYPOALB) 9.5 mg/dL (8.5-10.1); CREATININE 1.36 mg/dL (0.55-1.02); TOTAL PROTEIN 5.6 g/dL (6.4-8.2)
[2017-03-22] MEDS: NEURONTIN CAP 100 MG PO SCH ×3 (06:17→21:25)
[2017-03-22] MEDS: SYNTHROID 125 mcg TAB PO SCH ×2 (06:36→10:42)
[2017-03-22] MEDS ORDERED: MARCAINE 0.25% WITH EPI IJ ONE ×2 (07:49→11:06)
[2017-03-22] MEDS ORDERED: XYLOCAINE 1% and EPINEPHRINE 1:100,000 ONE (07:49)
[2017-03-22] MEDS ORDERED: FENTANYL INJ 100 mcg ONE (08:25)
[2017-03-22] MEDS: FOLIC ACID TAB 1 MG PO SCH ×2 (08:28→10:46)
[2017-03-22] MEDS: ZyrTEC TAB 10 MG PO SCH ×2 (08:28→10:44)
[2017-03-22] MEDS: NS 1000 ML 1,000 ML IV SCH ×2 (08:29→23:55)
[2017-03-22] MEDS ORDERED: NS 50 ML IV + SPIKE MINIBAG* 50 ML IV ONE (08:39)
[2017-03-22] MEDS ORDERED: ANCEF VIAL 1 GM ONE (08:40)
[2017-03-22] MEDS ORDERED: NS 1000 ML 1,000 ML ONE (08:46)
[2017-03-22] MEDS ORDERED: VERSED ONE (09:37)
[2017-03-22] MEDS ORDERED: DIPRIVAN VIAL ONE (09:37)
[2017-03-22] MEDS: LOVAZA PO SCH ×2 (10:41→20:48)
[2017-03-22] MEDS: MILK OF MAGNESIA PO SCH ×2 (10:41→20:48)
[2017-03-22] MEDS: LYRICA CAP 50 MG PO SCH (10:41)
[2017-03-22] MEDS: ATIVAN TAB 0.5 MG PO SCH ×2 (10:42→20:49)
[2017-03-22] MEDS: ZYLOPRIM PO SCH (10:42)
[2017-03-22] MEDS: TRICOR TAB 48 MG PO SCH (10:43)
[2017-03-22] MEDS: VITAMIN D3 PO SCH (10:43)
[2017-03-22] MEDS: NexIUM PO SCH (10:44)
[2017-03-22] MEDS: PATIENT'S HOME MEDICATION (Sevelamer Carbonate [Renvela Tablet] 800 MG) PO SCH ×2 (10:45→20:47)
[2017-03-22] MEDS: PERCOCET TAB 5/325 MG PO PRN ×2 (10:46→23:51)
[2017-03-22] MEDS: ZOFRAN TAB 4 MG PO SCH (10:46)
[2017-03-22] MEDS ORDERED: XYLOCAINE 1 % (PLAIN) ONE (11:06)
--- NOTE | 2017-03-22 13:23 | PCM.PROG ---
Progress Note - Progress Note for Day of Date: 03/22/17 - Subjective Subjective: PT ADMITTED AFTER FALL WITH NEW LUMBAR SPINE COMPRESSION FRACTURES. DR BLUE CONSULTING, KYPHOPLASTY SCHEDULED FOR THIS AM. CONTINUE PT, PAIN CONTROL - Past Medical Family Social History Past Med/Fam/Surg Hx: No changes since H&P Allergies: Allergies No Known Drug Allergies Allergy (Verified 03/20/17 04:45) - Review of Systems ROS: No change since H&P - Vital Signs and I&O's Vital Signs: Temperature 98.2 F Pulse Rate [Right Brachial] 86 Pulse Rate 81 Respiratory Rate 18 Blood Pressure [Right Arm] 123/58 Blood Pressure 149/70 O2 Sat by Pulse Oximetry 93 Intake and Output: Intake & Output 03/20/17 03/21/17 03/22/17 03/23/17 11:59 11:59 11:59 11:59 Intake Total 833 1082 1813 Output Total 1000 1700 1400 Balance -167 -511 413 - Physical Exam Oriented: Normal Eyes: Normal Ear: Normal Nose: Normal Throat: Normal Respiratory: Wheezes (MILD UPPER EXP WHEEZE) Cardiovascular: Normal : Normal Auscultation: Bowel Sounds: Normal Tenderness: Normal Skin: Normal Musculoskeletal: Back:Thoracic, Back:Lumbar Mood Description: Calm Speech Pattern: Clear, Appropriate - Laboratory and Diagnostics Result Diagrams: 03/22/17 03:30 03/22/17 03:30 Labs: Laboratory WBC 10.0 X10^3/uL (3.6-10.0) 03/22/17 03:30 RBC 3.24 X10^6/uL (3.5-5.4) L 03/22/17 03:30 Hgb 10.0 g/dL (12.0-16.0) L 03/22/17 03:30 Hct 29.8 % (36.0-47.0) L 03/22/17 03:30 MCV 92.0 fL (80.0-100.0) 03/22/17 03:30 MCH 30.9 pg (27.0-34.0) 03/22/17 03:30 MCHC 33.6 g/dL (33.0-35.0) 03/22/17 03:30 RDW 15.2 % (11.6-16.5) 03/22/17 03:30 Plt Count 165 X10^3/uL (150.0-450.0) 03/22/17 03:30 MPV 8.3 fL (7.4-11.0) 03/22/17 03:30 Neut % 70.2 % (42.0-75.0) 03/22/17 03:30 Lymph % 19.1 % (21.0-51.0) L 03/22/17 03:30 [place] % 7.7 % (0.0-13.0) 03/22/17 03:30 Eos % 2.2 % (0.9-2.9) 03/22/17 03:30 Baso % 0.8 % (0.2-1.0) 03/22/17 03:30 Neut # 7.0 x10^3/uL (2.2-4.8) H 03/22/17 03:30 Lymph # 1.9 X10^3/uL (1.3-2.9) 03/22/17 03:30 [place] # 0.8 x10^3/uL (0.3-0.8) 03/22/17 03:30 Eos # 0.2 x10^3/uL (0.0-0.2) 03/22/17 03:30 Baso # 0.1 X10^3/uL (0.0-0.1) 03/22/17 03:30 Absolute Nucleated RBC 0.0 /100WBC 03/22/17 03:30 Sodium 135 mmol/L (136-145) L 03/22/17 03:30 Corrected Sodium 136 mmol/L (136-145) 03/22/17 03:30 Potassium 5.5 mmol/L (3.5-5.1) H 03/22/17 03:30 Chloride 105 mmol/L (98-107) 03/22/17 03:30 Carbon Dioxide 22.1 mmol/L (21-32) 03/22/17 03:30 BUN 29 mg/dL (7-18) H 03/22/17 03:30 Creatinine 1.36 mg/dL (0.55-1.02) H 03/22/17 03:30 Est GFR (MDRD) Af Amer 48 (>60) L 03/22/17 03:30 Est GFR (MDRD) Non-Af 40 (>60) L 03/22/17 03:30 Glucose 142 mg/dL (65-99) H 03/22/17 03:30 Calcium 8.1 mg/dL (8.5-10.1) L 03/22/17 03:30 Corrected Calcium 9.5 mg/dL (8.5-10.1) 03/22/17 03:30 Total Bilirubin 0.20 mg/dL (0.2-1.0) 03/22/17 03:30 AST 22 Units/L (15-37) 03/22/17 03:30 ALT 22 Units/L (12-78) 03/22/17 03:30 Alkaline Phosphatase 41 Units/L (46-116) L 03/22/17 03:30 Creatine Kinase 81 Units/L (26-192) 03/19/17 22:40 CK-MB (CK-2) 1.2 ng/mL (0-4.0) 03/19/17 22:40 CK/CKMB % Calc 1.5 % (<4) 03/19/17 22:40 Troponin I < 0.02 ng/mL (0-1.5) 03/19/17 22:40 Total Protein 5.6 g/dL (6.4-8.2) L 03/22/17 03:30 Albumin 2.2 g/dL (3.4-5.0) L 03/22/17 03:30 Globulin 3.4 g/dL (2.5-4.5) 03/22/17 03:30 Albumin/Globulin Ratio 0.6 Ratio (1.1-2.1) L 03/22/17 03:30 Specimen Type Catherized urine 03/19/17 13:18 Urine Color Yellow (YELLOW) 03/19/17 13:18 Urine Appearance Clear (CLEAR) 03/19/17 13:18 Urine pH 6.5 (5.0 - 8.0) 03/19/17 13:18 Ur Specific [place] 1.010 (1.000-1.030) 03/19/17 13:18 Urine Protein 3+ (NEGATIVE) 03/19/17 13:18 Urine Glucose (UA) Negative (NEGATIVE) 03/19/17 13:18 Urine Ketones Negative (NEGATIVE) 03/19/17 13:18 Urine Occult Blood Negative (NEGATIVE) 03/19/17 13:18 Urine Nitrite Negative (NEGATIVE) 03/19/17 13:18 Urine Bilirubin Negative (NEGATIVE) 03/19/17 13:18 Urine Urobilinogen Normal (NORMAL) 03/19/17 13:18 Ur Leukocyte Esterase Negative (NEGATIVE) 03/19/17 13:18 Urine RBC 0-2 /HPF (NEGATIVE) 03/19/17 13:18 Urine WBC 0-2 /HPF (NEGATIVE) 03/19/17 13:18 Ur Squamous Epith Cells Negative /HPF (NEGATIVE) 03/19/17 13:18 Urine Bacteria Trace /HPF (NEGATIVE) 03/19/17 13:18 Ur Culture Indicated? No/not indicated 03/19/17 13:18 - Plan (1) Compression fracture of lumbar vertebra, non-traumatic Status: Acute Qualifiers: Encounter type: E Fracture healing: F Plan: PAIN CONTROL, PT. ORTHO CONSULT, NPO FOR KYPHOPLASTY THIS AM (2) Fall Status: Acute Qualifiers: Encounter type: E (3) Cough Status: Acute Plan: CXR ON ADMISSION STABLE, RESP CONSULT FOR JET NEBS PRN
[2017-03-22] MEDS: HumuLIN R SUBCUT PRN (16:16)
[2017-03-22] MEDS ORDERED: CHLORASEPTIC SPRAY MT PRN (18:06)
[2017-03-22] MEDS: CRESTOR TAB 10 MG PO SCH (20:48)
[2017-03-22] MEDS: COLACE CAP 100 MG PO SCH (20:48)
[2017-03-22] MEDS: DESYREL PO SCH (20:49)
[2017-03-22] MEDS: SNACK - Diabetic Appropriate PO SCH (21:28)
[2017-03-23] MEDS: MORPHINE SULFATE INJ 4 MG IVP PRN ×3 (02:30→22:47)
[2017-03-23] MEDS: NEURONTIN CAP 100 MG PO SCH ×3 (05:44→21:17)
[2017-03-23 06:09] LABS: BASOPHILS # (AUTO) 0.1 X10^3/uL (0.0-0.1); BASOPHILS % (AUTO) 0.8 % (0.2-1.0); EOSINOPHILS # (AUTO) 0.2 x10^3/uL (0.0-0.2); EOSINOPHILS % (AUTO) 2.8 % (0.9-2.9); HEMATOCRIT 28.1 % (36.0-47.0); HEMOGLOBIN 9.4 g/dL (12.0-16.0); LYMPHOCYTES # (AUTO) 2.1 X10^3/uL (1.3-2.9); LYMPHOCYTES % (AUTO) 23.9 % (21.0-51.0); MEAN CORPUSCULAR HEMOGLOBIN 30.8 pg (27.0-34.0); MEAN CORPUSCULAR HGB CONC 33.5 g/dL (33.0-35.0); MEAN CORPUSCULAR VOLUME 91.9 fL (80.0-100.0); MEAN PLATELET VOLUME 8.3 fL (7.4-11.0); MONOCYTES # (AUTO) 0.8 x10^3/uL (0.3-0.8); MONOCYTES % (AUTO) 9.1 % (0.0-13.0); NEUTROPHILS # (AUTO) 5.5 x10^3/uL (2.2-4.8); NEUTROPHILS % (AUTO) 63.4 % (42.0-75.0); PLATELET COUNT 166 X10^3/uL (150.0-450.0); RED BLOOD COUNT 3.06 X10^6/uL (3.5-5.4); RED CELL DISTRIBUTION WIDTH 15.1 % (11.6-16.5); WHITE BLOOD COUNT 8.6 X10^3/uL (3.6-10.0)
[2017-03-23 06:42] LABS: CALCIUM 8.1 mg/dL (8.5-10.1); CARBON DIOXIDE 23.6 mmol/L (21-32); COR CA(FOR HYPOALB) 9.7 mg/dL (8.5-10.1); CREATININE 1.44 mg/dL (0.55-1.02); TOTAL PROTEIN 5.4 g/dL (6.4-8.2)
[2017-03-23] MEDS: SYNTHROID 100 mcg TAB PO SCH (07:36)
[2017-03-23] MEDS: PERCOCET TAB 5/325 MG PO PRN ×2 (09:19→16:55)
[2017-03-23] MEDS: LOVAZA PO SCH ×2 (09:19→21:16)
[2017-03-23] MEDS: LYRICA CAP 50 MG PO SCH (09:20)
[2017-03-23] MEDS: ZyrTEC TAB 10 MG PO SCH (09:20)
[2017-03-23] MEDS: TRICOR TAB 48 MG PO SCH (09:20)
[2017-03-23] MEDS: FOLIC ACID TAB 1 MG PO SCH (09:20)
[2017-03-23] MEDS: ZOFRAN TAB 4 MG PO SCH (09:20)
[2017-03-23] MEDS: VITAMIN D3 PO SCH (09:20)
[2017-03-23] MEDS: ATIVAN TAB 0.5 MG PO SCH ×2 (09:20→21:17)
[2017-03-23] MEDS: ZYLOPRIM PO SCH (09:21)
[2017-03-23] MEDS: MILK OF MAGNESIA PO SCH ×2 (09:21→21:16)
[2017-03-23] MEDS: NexIUM PO SCH (09:21)
[2017-03-23] MEDS: PATIENT'S HOME MEDICATION (Sevelamer Carbonate [Renvela Tablet] 800 MG) PO SCH ×2 (09:22→21:15)
[2017-03-23] MEDS: NS 1000 ML 1,000 ML IV SCH ×2 (10:26→17:07)
--- NOTE | 2017-03-23 18:26 | PCM.PROG ---
Progress Note - Progress Note for Day of Date: 03/23/17 - Subjective Subjective: PT ADMITTED AFTER FALL WITH NEW LUMBAR SPINE COMPRESSION FRACTURES. DR BLUE CONSULTING, KYPHOPLASTY ON MONDAY. PAIN IS STABLE, PT WILL BE PLACED IN [facility] IN [place] WHEN RELEASED BY ORTHO FOR REHAB THERAPY - Past Medical Family Social History Past Med/Fam/Surg Hx: No changes since H&P Allergies: Allergies No Known Drug Allergies Allergy (Verified 03/20/17 04:45) - Review of Systems ROS: No change since H&P - Vital Signs and I&O's Vital Signs: Temperature 98.4 F Pulse Rate [Right Brachial] 66 Pulse Rate 81 Respiratory Rate 16 Blood Pressure [Right Arm] 140/67 Blood Pressure 149/70 O2 Sat by Pulse Oximetry 94 Intake and Output: Intake & Output 03/21/17 03/22/17 03/23/17 03/24/17 11:59 11:59 11:59 11:59 Intake Total 1082 1813 1400 953 Output Total 1700 1400 1950 700 Balance -618 413 -550 253 - Physical Exam Oriented: Normal Eyes: Normal Ear: Normal Nose: Normal Throat: Normal Respiratory: Wheezes (MILD UPPER EXP WHEEZE) Cardiovascular: Normal : Normal Auscultation: Bowel Sounds: Normal Tenderness: Normal Skin: Normal Musculoskeletal: Back:Thoracic, Back:Lumbar Mood Description: Calm Speech Pattern: Clear, Appropriate - Laboratory and Diagnostics Result Diagrams: 03/23/17 04:00 03/23/17 04:00 Labs: Laboratory WBC 8.6 X10^3/uL (3.6-10.0) 03/23/17 04:00 RBC 3.06 X10^6/uL (3.5-5.4) L 03/23/17 04:00 Hgb 9.4 g/dL (12.0-16.0) L 03/23/17 04:00 Hct 28.1 % (36.0-47.0) L 03/23/17 04:00 MCV 91.9 fL (80.0-100.0) 03/23/17 04:00 MCH 30.8 pg (27.0-34.0) 03/23/17 04:00 MCHC 33.5 g/dL (33.0-35.0) 03/23/17 04:00 RDW 15.1 % (11.6-16.5) 03/23/17 04:00 Plt Count 166 X10^3/uL (150.0-450.0) 03/23/17 04:00 MPV 8.3 fL (7.4-11.0) 03/23/17 04:00 Neut % 63.4 % (42.0-75.0) 03/23/17 04:00 Lymph % 23.9 % (21.0-51.0) 03/23/17 04:00 [place] % 9.1 % (0.0-13.0) 03/23/17 04:00 Eos % 2.8 % (0.9-2.9) 03/23/17 04:00 Baso % 0.8 % (0.2-1.0) 03/23/17 04:00 Neut # 5.5 x10^3/uL (2.2-4.8) H 03/23/17 04:00 Lymph # 2.1 X10^3/uL (1.3-2.9) 03/23/17 04:00 [place] # 0.8 x10^3/uL (0.3-0.8) 03/23/17 04:00 Eos # 0.2 x10^3/uL (0.0-0.2) 03/23/17 04:00 Baso # 0.1 X10^3/uL (0.0-0.1) 03/23/17 04:00 Absolute Nucleated RBC 0.0 /100WBC 03/23/17 04:00 Sodium 138 mmol/L (136-145) 03/23/17 04:00 Corrected Sodium 139 mmol/L (136-145) 03/23/17 04:00 Potassium 5.4 mmol/L (3.5-5.1) H 03/23/17 04:00 Chloride 108 mmol/L (98-107) H 03/23/17 04:00 Carbon Dioxide 23.6 mmol/L (21-32) 03/23/17 04:00 BUN 30 mg/dL (7-18) H 03/23/17 04:00 Creatinine 1.44 mg/dL (0.55-1.02) H 03/23/17 04:00 Est GFR (MDRD) Af Amer 45 (>60) L 03/23/17 04:00 Est GFR (MDRD) Non-Af 37 (>60) L 03/23/17 04:00 Glucose 141 mg/dL (65-99) H 03/23/17 04:00 Calcium 8.1 mg/dL (8.5-10.1) L 03/23/17 04:00 Corrected Calcium 9.7 mg/dL (8.5-10.1) 03/23/17 04:00 Total Bilirubin 0.20 mg/dL (0.2-1.0) 03/23/17 04:00 AST 21 Units/L (15-37) 03/23/17 04:00 ALT 22 Units/L (12-78) 03/23/17 04:00 Alkaline Phosphatase 41 Units/L (46-116) L 03/23/17 04:00 Creatine Kinase 81 Units/L (26-192) 03/19/17 22:40 CK-MB (CK-2) 1.2 ng/mL (0-4.0) 03/19/17 22:40 CK/CKMB % Calc 1.5 % (<4) 03/19/17 22:40 Troponin I < 0.02 ng/mL (0-1.5) 03/19/17 22:40 Total Protein 5.4 g/dL (6.4-8.2) L 03/23/17 04:00 Albumin 2.0 g/dL (3.4-5.0) L 03/23/17 04:00 Globulin 3.4 g/dL (2.5-4.5) 03/23/17 04:00 Albumin/Globulin Ratio 0.6 Ratio (1.1-2.1) L 03/23/17 04:00 Specimen Type Catherized urine 03/19/17 13:18 Urine Color Yellow (YELLOW) 03/19/17 13:18 Urine Appearance Clear (CLEAR) 03/19/17 13:18 Urine pH 6.5 (5.0 - 8.0) 03/19/17 13:18 Ur Specific [place] 1.010 (1.000-1.030) 03/19/17 13:18 Urine Protein 3+ (NEGATIVE) 03/19/17 13:18 Urine Glucose (UA) Negative (NEGATIVE) 03/19/17 13:18 Urine Ketones Negative (NEGATIVE) 03/19/17 13:18 Urine Occult Blood Negative (NEGATIVE) 03/19/17 13:18 Urine Nitrite Negative (NEGATIVE) 03/19/17 13:18 Urine Bilirubin Negative (NEGATIVE) 03/19/17 13:18 Urine Urobilinogen Normal (NORMAL) 03/19/17 13:18 Ur Leukocyte Esterase Negative (NEGATIVE) 03/19/17 13:18 Urine RBC 0-2 /HPF (NEGATIVE) 03/19/17 13:18 Urine WBC 0-2 /HPF (NEGATIVE) 03/19/17 13:18 Ur Squamous Epith Cells Negative /HPF (NEGATIVE) 03/19/17 13:18 Urine Bacteria Trace /HPF (NEGATIVE) 03/19/17 13:18 Ur Culture Indicated? No/not indicated 03/19/17 13:18 - Plan (1) Compression fracture of lumbar vertebra, non-traumatic Status: Acute Qualifiers: Encounter type: E Fracture healing: F Plan: ONE DAY S/P KYPHOPLASTY. CONTINUE PT, ORTHO PLAN OF CARE. REHAB THERAPY PLACEMENT PENDING (2) Fall Status: Acute Qualifiers: Encounter type: E (3) Cough Status: Acute Plan: CXR ON ADMISSION STABLE, RESP CONSULT FOR JET NEBS PRN
[2017-03-23] MEDS: COLACE CAP 100 MG PO SCH (21:16)
[2017-03-23] MEDS: CRESTOR TAB 10 MG PO SCH (21:16)
[2017-03-23] MEDS: DESYREL PO SCH (21:16)
[2017-03-23] MEDS: SNACK - Diabetic Appropriate PO SCH (21:17)
[2017-03-24] MEDS: PERCOCET TAB 5/325 MG PO PRN (04:25)
[2017-03-24 05:08] LABS: BASOPHILS % (AUTO) 0.4 % (0.2-1.0); EOSINOPHILS # (AUTO) 0.3 x10^3/uL (0.0-0.2); EOSINOPHILS % (AUTO) 2.9 % (0.9-2.9); HEMATOCRIT 30.7 % (36.0-47.0); HEMOGLOBIN 10.1 g/dL (12.0-16.0); LYMPHOCYTES # (AUTO) 2.3 X10^3/uL (1.3-2.9); LYMPHOCYTES % (AUTO) 25.5 % (21.0-51.0); MEAN CORPUSCULAR HEMOGLOBIN 30.8 pg (27.0-34.0); MEAN CORPUSCULAR HGB CONC 33.1 g/dL (33.0-35.0); MEAN CORPUSCULAR VOLUME 93.2 fL (80.0-100.0); MEAN PLATELET VOLUME 7.9 fL (7.4-11.0); MONOCYTES # (AUTO) 0.7 x10^3/uL (0.3-0.8); MONOCYTES % (AUTO) 8.1 % (0.0-13.0); NEUTROPHILS # (AUTO) 5.7 x10^3/uL (2.2-4.8); NEUTROPHILS % (AUTO) 63.1 % (42.0-75.0); PLATELET COUNT 192 X10^3/uL (150.0-450.0); RED BLOOD COUNT 3.29 X10^6/uL (3.5-5.4); RED CELL DISTRIBUTION WIDTH 15.1 % (11.6-16.5); WHITE BLOOD COUNT 9.1 X10^3/uL (3.6-10.0)
[2017-03-24 05:19] LABS: ALBUMIN 2.2 g/dL (3.4-5.0); CALCIUM 8.4 mg/dL (8.5-10.1); CARBON DIOXIDE 24.8 mmol/L (21-32); COR CA(FOR HYPOALB) 9.8 mg/dL (8.5-10.1); CREATININE 1.22 mg/dL (0.55-1.02); TOTAL PROTEIN 5.9 g/dL (6.4-8.2)
[2017-03-24] MEDS: NEURONTIN CAP 100 MG PO SCH ×3 (06:13→21:02)
[2017-03-24] MEDS: NS 1000 ML 1,000 ML IV SCH ×2 (06:16→13:30)
[2017-03-24] MEDS: SYNTHROID 125 mcg TAB PO SCH (06:32)
[2017-03-24] MEDS ORDERED: FLEXERIL TAB 10 MG PO PRN (09:24)
[2017-03-24] MEDS: NexIUM PO SCH (11:04)
[2017-03-24] MEDS: ZOFRAN TAB 4 MG PO SCH (11:04)
[2017-03-24] MEDS: ZyrTEC TAB 10 MG PO SCH (11:04)
[2017-03-24] MEDS: ATIVAN TAB 0.5 MG PO SCH ×2 (11:05→21:02)
[2017-03-24] MEDS: ZYLOPRIM PO SCH (11:05)
[2017-03-24] MEDS: VITAMIN D3 PO SCH (11:05)
[2017-03-24] MEDS: LOVAZA PO SCH ×2 (11:05→21:02)
[2017-03-24] MEDS: TRICOR TAB 48 MG PO SCH (11:06)
[2017-03-24] MEDS: ASPIRIN EC 81 MG PO SCH (11:06)
[2017-03-24] MEDS: LYRICA CAP 50 MG PO SCH (11:06)
[2017-03-24] MEDS: FOLIC ACID TAB 1 MG PO SCH (11:06)
[2017-03-24] MEDS: MILK OF MAGNESIA PO SCH ×2 (11:06→21:01)
[2017-03-24] MEDS: PATIENT'S HOME MEDICATION (Sevelamer Carbonate [Renvela Tablet] 800 MG) PO SCH ×2 (11:14→21:03)
[2017-03-24] MEDS: COLACE CAP 100 MG PO SCH (21:01)
[2017-03-24] MEDS: DESYREL PO SCH (21:02)
[2017-03-24] MEDS: CRESTOR TAB 10 MG PO SCH (21:02)
[2017-03-24] MEDS: SNACK - Diabetic Appropriate PO SCH (21:11)
[2017-03-24] MEDS: MORPHINE SULFATE INJ 4 MG IVP PRN (21:14)
[2017-03-25] MEDS: NS 1000 ML 1,000 ML IV SCH ×2 (00:15→12:43)
[2017-03-25] MEDS: PERCOCET TAB 5/325 MG PO PRN ×2 (00:50→12:40)
[2017-03-25] MEDS: NEURONTIN CAP 100 MG PO SCH ×4 (05:59→21:02)
[2017-03-25] MEDS: MORPHINE SULFATE INJ 4 MG IVP PRN (05:59)
[2017-03-25 06:18] LABS: BASOPHILS # (AUTO) 0.1 X10^3/uL (0.0-0.1); BASOPHILS % (AUTO) 0.7 % (0.2-1.0); EOSINOPHILS # (AUTO) 0.2 x10^3/uL (0.0-0.2); EOSINOPHILS % (AUTO) 2.1 % (0.9-2.9); HEMATOCRIT 28.6 % (36.0-47.0); HEMOGLOBIN 9.6 g/dL (12.0-16.0); LYMPHOCYTES # (AUTO) 2.1 X10^3/uL (1.3-2.9); LYMPHOCYTES % (AUTO) 22.8 % (21.0-51.0); MEAN CORPUSCULAR HEMOGLOBIN 30.9 pg (27.0-34.0); MEAN CORPUSCULAR HGB CONC 33.6 g/dL (33.0-35.0); MEAN CORPUSCULAR VOLUME 91.8 fL (80.0-100.0); MEAN PLATELET VOLUME 7.8 fL (7.4-11.0); MONOCYTES # (AUTO) 0.8 x10^3/uL (0.3-0.8); MONOCYTES % (AUTO) 8.3 % (0.0-13.0); NEUTROPHILS # (AUTO) 6.1 x10^3/uL (2.2-4.8); NEUTROPHILS % (AUTO) 66.1 % (42.0-75.0); PLATELET COUNT 214 X10^3/uL (150.0-450.0); RED BLOOD COUNT 3.12 X10^6/uL (3.5-5.4); RED CELL DISTRIBUTION WIDTH 15.2 % (11.6-16.5); WHITE BLOOD COUNT 9.3 X10^3/uL (3.6-10.0)
[2017-03-25 06:30] LABS: ALBUMIN 2.1 g/dL (3.4-5.0); CALCIUM 8.2 mg/dL (8.5-10.1); CARBON DIOXIDE 25.4 mmol/L (21-32); COR CA(FOR HYPOALB) 9.7 mg/dL (8.5-10.1); CREATININE 1.25 mg/dL (0.55-1.02); TOTAL PROTEIN 5.7 g/dL (6.4-8.2)
[2017-03-25] MEDS: SYNTHROID 100 mcg TAB PO SCH (06:32)
[2017-03-25] MEDS: FOLIC ACID TAB 1 MG PO SCH (09:00)
[2017-03-25] MEDS: NexIUM PO SCH (09:00)
[2017-03-25] MEDS: MILK OF MAGNESIA PO SCH ×2 (09:00→21:02)
[2017-03-25] MEDS: LOVAZA PO SCH ×2 (09:00→21:02)
[2017-03-25] MEDS: ZyrTEC TAB 10 MG PO SCH (09:00)
[2017-03-25] MEDS: ZYLOPRIM PO SCH (09:00)
[2017-03-25] MEDS: ASPIRIN EC 81 MG PO SCH (09:01)
[2017-03-25] MEDS: CONSULT PHARMACY - INSULIN ADJUSTMENT NEEDED XX SCH (09:01)
[2017-03-25] MEDS: TRICOR TAB 48 MG PO SCH (09:01)
[2017-03-25] MEDS: ZOFRAN TAB 4 MG PO SCH (09:01)
[2017-03-25] MEDS: ATIVAN TAB 0.5 MG PO SCH ×2 (09:01→21:02)
[2017-03-25] MEDS: LYRICA CAP 50 MG PO SCH (09:01)
[2017-03-25] MEDS: VITAMIN D3 PO SCH (09:01)
[2017-03-25] MEDS: PATIENT'S HOME MEDICATION (Sevelamer Carbonate [Renvela Tablet] 800 MG) PO SCH ×2 (09:17→21:02)
[2017-03-25] MEDS: CRESTOR TAB 10 MG PO SCH (21:02)
[2017-03-25] MEDS: COLACE CAP 100 MG PO SCH (21:02)
[2017-03-25] MEDS: DESYREL PO SCH (21:02)
[2017-03-25] MEDS: SNACK - Diabetic Appropriate PO SCH (21:03)
[2017-03-26] MEDS: NS 1000 ML 1,000 ML IV SCH ×2 (02:10→21:30)
[2017-03-26] MEDS: PERCOCET TAB 5/325 MG PO PRN ×3 (02:10→21:19)
[2017-03-26 06:19] LABS: BASOPHILS # (AUTO) 0.1 X10^3/uL (0.0-0.1); BASOPHILS % (AUTO) 0.7 % (0.2-1.0); EOSINOPHILS # (AUTO) 0.2 x10^3/uL (0.0-0.2); EOSINOPHILS % (AUTO) 1.9 % (0.9-2.9); HEMOGLOBIN 9.2 g/dL (12.0-16.0); LYMPHOCYTES # (AUTO) 1.7 X10^3/uL (1.3-2.9); LYMPHOCYTES % (AUTO) 19.6 % (21.0-51.0); MEAN CORPUSCULAR HEMOGLOBIN 30.4 pg (27.0-34.0); MEAN CORPUSCULAR VOLUME 92.2 fL (80.0-100.0); MEAN PLATELET VOLUME 7.7 fL (7.4-11.0); MONOCYTES # (AUTO) 0.7 x10^3/uL (0.3-0.8); MONOCYTES % (AUTO) 8.1 % (0.0-13.0); NEUTROPHILS # (AUTO) 6.1 x10^3/uL (2.2-4.8); NEUTROPHILS % (AUTO) 69.7 % (42.0-75.0); PLATELET COUNT 220 X10^3/uL (150.0-450.0); RED BLOOD COUNT 3.04 X10^6/uL (3.5-5.4); WHITE BLOOD COUNT 8.7 X10^3/uL (3.6-10.0)
[2017-03-26 06:24] LABS: ALBUMIN 2.1 g/dL (3.4-5.0); CALCIUM 8.3 mg/dL (8.5-10.1); CARBON DIOXIDE 25.6 mmol/L (21-32); COR CA(FOR HYPOALB) 9.8 mg/dL (8.5-10.1); CREATININE 1.34 mg/dL (0.55-1.02); TOTAL PROTEIN 5.5 g/dL (6.4-8.2)
[2017-03-26] MEDS: NEURONTIN CAP 100 MG PO SCH ×3 (06:38→21:20)
[2017-03-26] MEDS: SYNTHROID 125 mcg TAB PO SCH (06:38)
[2017-03-26] MEDS: FOLIC ACID TAB 1 MG PO SCH (08:57)
[2017-03-26] MEDS: ZyrTEC TAB 10 MG PO SCH (08:57)
[2017-03-26] MEDS: ATIVAN TAB 0.5 MG PO SCH ×2 (08:57→21:21)
[2017-03-26] MEDS: TRICOR TAB 48 MG PO SCH (08:57)
[2017-03-26] MEDS: ZYLOPRIM PO SCH (08:57)
[2017-03-26] MEDS: ZOFRAN TAB 4 MG PO SCH (08:57)
[2017-03-26] MEDS: ASPIRIN EC 81 MG PO SCH (08:57)
[2017-03-26] MEDS: VITAMIN D3 PO SCH (08:57)
[2017-03-26] MEDS: LOVAZA PO SCH ×2 (08:57→21:20)
[2017-03-26] MEDS: LYRICA CAP 50 MG PO SCH (08:57)
[2017-03-26] MEDS: NexIUM PO SCH (08:57)
[2017-03-26] MEDS: PATIENT'S HOME MEDICATION (Sevelamer Carbonate [Renvela Tablet] 800 MG) PO SCH ×2 (09:01→21:25)
[2017-03-26] MEDS: MILK OF MAGNESIA PO SCH ×2 (09:05→21:20)
[2017-03-26] MEDS: CONSULT PHARMACY - INSULIN ADJUSTMENT NEEDED XX SCH (09:09)
[2017-03-26] MEDS: COLACE CAP 100 MG PO SCH (21:20)
[2017-03-26] MEDS: DESYREL PO SCH (21:20)
[2017-03-26] MEDS: CRESTOR TAB 10 MG PO SCH (21:20)
[2017-03-26] MEDS: SNACK - Diabetic Appropriate PO SCH (21:25)
[2017-03-26] MEDS: HumuLIN R SUBCUT PRN (21:26)
[2017-03-27 04:44] LABS: BASOPHILS # (AUTO) 0.1 X10^3/uL (0.0-0.1); BASOPHILS % (AUTO) 0.6 % (0.2-1.0); EOSINOPHILS # (AUTO) 0.2 x10^3/uL (0.0-0.2); EOSINOPHILS % (AUTO) 2.1 % (0.9-2.9); HEMATOCRIT 28.1 % (36.0-47.0); HEMOGLOBIN 9.4 g/dL (12.0-16.0); LYMPHOCYTES # (AUTO) 2.1 X10^3/uL (1.3-2.9); LYMPHOCYTES % (AUTO) 21.8 % (21.0-51.0); MEAN CORPUSCULAR HEMOGLOBIN 30.9 pg (27.0-34.0); MEAN CORPUSCULAR HGB CONC 33.6 g/dL (33.0-35.0); MEAN PLATELET VOLUME 7.8 fL (7.4-11.0); MONOCYTES # (AUTO) 0.7 x10^3/uL (0.3-0.8); MONOCYTES % (AUTO) 7.3 % (0.0-13.0); NEUTROPHILS # (AUTO) 6.7 x10^3/uL (2.2-4.8); NEUTROPHILS % (AUTO) 68.2 % (42.0-75.0); PLATELET COUNT 261 X10^3/uL (150.0-450.0); RED BLOOD COUNT 3.05 X10^6/uL (3.5-5.4); WHITE BLOOD COUNT 9.8 X10^3/uL (3.6-10.0)
[2017-03-27 04:53] LABS: ALBUMIN 2.1 g/dL (3.4-5.0); CALCIUM 8.4 mg/dL (8.5-10.1); CARBON DIOXIDE 24.9 mmol/L (21-32); COR CA(FOR HYPOALB) 9.9 mg/dL (8.5-10.1); CREATININE 1.34 mg/dL (0.55-1.02); TOTAL PROTEIN 5.5 g/dL (6.4-8.2)
[2017-03-27] MEDS: NS 1000 ML 1,000 ML IV SCH (06:02)
[2017-03-27] MEDS: NEURONTIN CAP 100 MG PO SCH (06:15)
[2017-03-27] MEDS: PERCOCET TAB 5/325 MG PO PRN (06:15)
[2017-03-27] MEDS: SYNTHROID 100 mcg TAB PO SCH (06:59)
[2017-03-27] MEDS: NexIUM PO SCH (08:40)
[2017-03-27] MEDS: ASPIRIN EC 81 MG PO SCH (08:40)
[2017-03-27] MEDS: ATIVAN TAB 0.5 MG PO SCH (08:40)
[2017-03-27] MEDS: ZOFRAN TAB 4 MG PO SCH (08:40)
[2017-03-27] MEDS: ZYLOPRIM PO SCH (08:40)
[2017-03-27] MEDS: VITAMIN D3 PO SCH (08:41)
[2017-03-27] MEDS: TRICOR TAB 48 MG PO SCH (08:41)
[2017-03-27] MEDS: LOVAZA PO SCH (08:41)
[2017-03-27] MEDS: LYRICA CAP 50 MG PO SCH (08:41)
[2017-03-27] MEDS: ZyrTEC TAB 10 MG PO SCH (08:41)
[2017-03-27] MEDS: MILK OF MAGNESIA PO SCH (08:41)
[2017-03-27] MEDS: FOLIC ACID TAB 1 MG PO SCH (08:41)
[2017-03-27] MEDS: PATIENT'S HOME MEDICATION (Sevelamer Carbonate [Renvela Tablet] 800 MG) PO SCH (08:45)
[2017-03-27] MEDS: CONSULT PHARMACY - INSULIN ADJUSTMENT NEEDED XX SCH (10:03)
[2017-03-27 12:35] VITALS: BP 139/63
--- NOTE | 2017-03-27 13:07 | PCM.DCPLAN ---
Discharge Summary - Admission Date Date of Admission: 03/19/17 - Discharge Date Discharge Date: 03/27/17 - Admission Diagnoses (1) Compression fracture of lumbar vertebra, non-traumatic Status: Acute (2) Fall Status: Acute (3) Cough Status: Acute - Discharge Diagnoses Discharge Diagnosis: same as admission - Discharge Medications Discharge Medications: Esomeprazole Magnesium [NEXIUM 40 MG *] 1 tab PO DAILY 03/19/17 [History] Hydrocodone/Acetaminophen [Hydrocodon-Acetaminophen 5-325] 1 tab PO Q6H PRN [History] Insulin Glargine,Hum.rec.anlog [Lantus Solostar] 45 units SQ HS 03/19/17 [ History] Levothyroxine Sodium [SYNTHROID 125 mcg *] 1 tab PO DAILY 03/19/17 [History] Lorazepam [ATIVAN 0.5 MG TAB *] 1 tab PO BID 03/19/17 [History] Misc Home Med [Patient's Home Medication (Non-PO)] 10 units SQ AC 03/19/17 [ History] Misc Home Med [Patient's Home Medication] 1 tab PO WEEKLY 03/19/17 [History] Ondansetron HCl [ZOFRAN TAB 4 MG *] 4 mg PO DAILY 03/19/17 [History] - Hospital Course Vital Signs: Temperature 97.7 F Pulse Rate [Right Brachial] 70 Pulse Rate 67 Respiratory Rate 18 Blood Pressure [Right Arm] 139/63 Blood Pressure 149/70 O2 Sat by Pulse Oximetry 95 Latest Lab Results: Laboratory Last Values WBC 9.8 X10^3/uL (3.6-10.0) 03/27/17 03:40 RBC 3.05 X10^6/uL (3.5-5.4) L 03/27/17 03:40 Hgb 9.4 g/dL (12.0-16.0) L 03/27/17 03:40 Hct 28.1 % (36.0-47.0) L 03/27/17 03:40 MCV 92.0 fL (80.0-100.0) 03/27/17 03:40 MCH 30.9 pg (27.0-34.0) 03/27/17 03:40 MCHC 33.6 g/dL (33.0-35.0) 03/27/17 03:40 RDW 15.0 % (11.6-16.5) 03/27/17 03:40 Plt Count 261 X10^3/uL (150.0-450.0) 03/27/17 03:40 MPV 7.8 fL (7.4-11.0) 03/27/17 03:40 Neut % 68.2 % (42.0-75.0) 03/27/17 03:40 Lymph % 21.8 % (21.0-51.0) 03/27/17 03:40 [place] % 7.3 % (0.0-13.0) 03/27/17 03:40 Eos % 2.1 % (0.9-2.9) 03/27/17 03:40 Baso % 0.6 % (0.2-1.0) 03/27/17 03:40 Neut # 6.7 x10^3/uL (2.2-4.8) H 03/27/17 03:40 Lymph # 2.1 X10^3/uL (1.3-2.9) 03/27/17 03:40 [place] # 0.7 x10^3/uL (0.3-0.8) 03/27/17 03:40 Eos # 0.2 x10^3/uL (0.0-0.2) 03/27/17 03:40 Baso # 0.1 X10^3/uL (0.0-0.1) 03/27/17 03:40 Absolute Nucleated RBC 0.0 /100WBC 03/27/17 03:40 Sodium 129 mmol/L (136-145) L 03/27/17 03:40 Corrected Sodium 130 mmol/L (136-145) L 03/27/17 03:40 Potassium 5.5 mmol/L (3.5-5.1) H 03/27/17 03:40 Chloride 101 mmol/L (98-107) 03/27/17 03:40 Carbon Dioxide 24.9 mmol/L (21-32) 03/27/17 03:40 BUN 29 mg/dL (7-18) H 03/27/17 03:40 Creatinine 1.34 mg/dL (0.55-1.02) H 03/27/17 03:40 Est GFR (MDRD) Af Amer 49 (>60) L 03/27/17 03:40 Est GFR (MDRD) Non-Af 40 (>60) L 03/27/17 03:40 Glucose 135 mg/dL (65-99) H 03/27/17 03:40 Calcium 8.4 mg/dL (8.5-10.1) L 03/27/17 03:40 Corrected Calcium 9.9 mg/dL (8.5-10.1) 03/27/17 03:40 Total Bilirubin 0.20 mg/dL (0.2-1.0) 03/27/17 03:40 AST 16 Units/L (15-37) 03/27/17 03:40 ALT 19 Units/L (12-78) 03/27/17 03:40 Alkaline Phosphatase 46 Units/L (46-116) 03/27/17 03:40 Creatine Kinase 81 Units/L (26-192) 03/19/17 22:40 CK-MB (CK-2) 1.2 ng/mL (0-4.0) 03/19/17 22:40 CK/CKMB % Calc 1.5 % (<4) 03/19/17 22:40 Troponin I < 0.02 ng/mL (0-1.5) 03/19/17 22:40 Total Protein 5.5 g/dL (6.4-8.2) L 03/27/17 03:40 Albumin 2.1 g/dL (3.4-5.0) L 03/27/17 03:40 Globulin 3.4 g/dL (2.5-4.5) 03/27/17 03:40 Albumin/Globulin Ratio 0.6 Ratio (1.1-2.1) L 03/27/17 03:40 Specimen Type Catherized urine 03/19/17 13:18 Urine Color Yellow (YELLOW) 03/19/17 13:18 Urine Appearance Clear (CLEAR) 03/19/17 13:18 Urine pH 6.5 (5.0 - 8.0) 03/19/17 13:18 Ur Specific [place] 1.010 (1.000-1.030) 03/19/17 13:18 Urine Protein 3+ (NEGATIVE) 03/19/17 13:18 Urine Glucose (UA) Negative (NEGATIVE) 03/19/17 13:18 Urine Ketones Negative (NEGATIVE) 03/19/17 13:18 Urine Occult Blood Negative (NEGATIVE) 03/19/17 13:18 Urine Nitrite Negative (NEGATIVE) 03/19/17 13:18 Urine Bilirubin Negative (NEGATIVE) 03/19/17 13:18 Urine Urobilinogen Normal (NORMAL) 03/19/17 13:18 Ur Leukocyte Esterase Negative (NEGATIVE) 03/19/17 13:18 Urine RBC 0-2 /HPF (NEGATIVE) 03/19/17 13:18 Urine WBC 0-2 /HPF (NEGATIVE) 03/19/17 13:18 Ur Squamous Epith Cells Negative /HPF (NEGATIVE) 03/19/17 13:18 Urine Bacteria Trace /HPF (NEGATIVE) 03/19/17 13:18 Ur Culture Indicated? No/not indicated 03/19/17 13:18 Hospital Course: patient is a 81-year-old white female who was admitted from the emergency room after presenting with new onset low back pain following a fall. Patient had an acute lumbar spine compression fracture and is status post kyphoplasty per Dr. Devendra Mariscal. Patient has tolerated procedure without any complications. Patient has been compliant with physical therapy and pain is controlled and patient has been accepted at a rehabilitation facility in [facility] and we plan to discharge her there today. Patient has been hemodynamically stable and would wish to resume home medications. Patient was given a prescription for tramadol , Lyrica, Ativan for 1 month supply until she can follow-up with orthopedic surgeon in [facility] for PCP. Patient will need to continue physical therapy and wound care per orthopedic postop instructions - Discharge Plan Disposition: 03 ER SNF Condition: Stable - Follow ups/Referrals Follow ups/Referrals: [facility],None [STAFF PHYSICIAN] - 3 days - Instructions Additional Instructions: resume home medications Physical therapy per rehabilitation facility Follow up with Dr. Null as scheduled Prescription for tramadol, Lyrica, Ativan sent with patient Follow primary care in 2 weeks for hospital
== END 2017-03-27 15:45 | DRG 516 ==
LOC: ER 09:47 → MED/SURG 13:07
PROVIDERS: ADMIT Internal Medicine; ATTEND Internal Medicine
PROC: 0QU03JZ Supplement Lumbar Vertebra with Synthetic Substitute, Percutaneous Approach (ICD-10-PCS; 2017-03-22)
PROC: 0QS03ZZ Reposition Lumbar Vertebra, Percutaneous Approach (ICD-10-PCS; principal; 2017-03-22 08:30)
DX: M48.56XA Collapsed vertebra, not elsewhere classified, lumbar region, initial encounter for fracture (principal); S32.2XXA Fracture of coccyx, initial encounter for closed fracture; W18.39XA Other fall on same level, initial encounter; Y92.89 Other specified places as the place of occurrence of the external cause; Z91.81 History of falling; M13.89 Other specified arthritis, multiple sites; E03.8 Other specified hypothyroidism; E86.0 Dehydration; E87.1 Hypo-osmolality and hyponatremia; E78.2 Mixed hyperlipidemia; R26.89 Other abnormalities of gait and mobility
CPT/HCPCS: 36415; 51702; 71010; 72131; 72192; 73564; 73630; 76000; 80053; 81001; 82550; 82553; 84484; 85025; 93005; 93010; 94760; 96365; 96374; 97535; 99100; 99284; A4222; S0020; S0181; J0690; J1815; J2001; J2250; J2270; J2405; J3010; J3490